=== PATIENT | female | born 1955 | race Caucasian/White ===

== ENCOUNTER 2019-10-19 16:30 | Outpatient (RCR) | payer BC, SELFPAY ==
--- NOTE | 2019-10-17 17:15 | PTOPEVAL ---
PHYSICAL THERAPY EVALUATION AND PLAN OF CARE 10-17-2019 Mrs. Wallace has received the PT evaluation and plan of treatment is scheduled for 2x/week for 4 weeks. Thank you for referring Simran to [facility]. Please review, sign, date and return this plan of care ROXANNA. I agree with and certify that the following plan of care is medically necessary. Referring Physician Date Attending Provider: Denny Barry MD *PT Outpatient Evaluation Start: 10/17/19 16:11 Document 10/17/19 16:05 ALLEN (Rec: 10/17/19 17:15 ALLEN [id number]) Outpatient Past Medical History Neurological History Hx Neurologic Surgery Yes: 12yrs old/sledding accident/clot removed/no residual Cardiovascular History Hx Cardiac Disorders No Significant History Respiratory History Hx Respiratory Disorders No Significant History Gastrointestinal History Hx Gastroesophageal Reflux Disease Yes Genitourinary History Hx Kidney Stones Yes Musculoskeletal History Hx Musculoskeletal Disorders No Significant History Hematological History Hx Hematological Disorders No Significant History Endocrine History Hx Endocrine Disorders No Significant History HEENT History Hx HEENT Disorders No Significant History Integumentary History Hx Skin Disorders No Significant History Reproductive History Hx Section Yes Hx Hysterectomy Yes Psychosocial History Hx Psychiatric Disorders No Significant History Pain History History of Any Previous or Ongoing No Significant History Instance of Pain Anesthesia History Hx Anesthesia Reactions No Significant History Evaluation Information Problem Diagnosis s/p R ankle ORIF due to trimalleolar fx Onset surgery 07-31-19 Subjective Information since surgery, used crutches; Query Text:As Reported By Patient/ have been doing ankle motions: Family toe scrunches, ankle up/down- per dr; foot and ankle swollen, had to get larger shoe; have light compression knee highs; after surgery, used immobilizer boot, it rubbed her incision and irritated it; not using any brace now; Previous Treatments Previous Treatments For This Problem no PT for ankle since surgery Prior Level of Function Activity Level (Last 3 Months) Occupation work in office Activity of Daily Living Ability Needs Some Help Stairs Ability Independent Cooking Yes Cleaning Yes L
--- NOTE | 2019-10-25 08:16 | PCPTNOTE ---
Patient called & cancelled all scheduled appointment this date due to COVID-19, keeping re-eval appointment on at this time.
--- NOTE | 2019-10-25 14:02 | PCPTNOTE ---
Pt called,talked with her on phone; she canceled appt due to coronavirus; reviewed HEP, she did not have any questions and is to continue them. Discussed increased walking without crutches, monitor swelling, pain; use ice and elevation PRN.
--- NOTE | 2019-11-03 15:36 | PCPTNOTE ---
pt called and saw yesterday, said Dr Barry was pleased with her ankle and the flexibility; discussed her HEP with her; she is to continue with sitting and standing exercises, with progression of walking and activity as tolerated; Her reevaluation is canceled due to coronavirus. The follow up appt with Dr Barry is in November. Pt is to call if any further questions. And after she sees , if need further PT to get new script.
--- NOTE | 2019-11-22 09:52 | PCPTNOTE ---
PHYSICAL THERAPY DISCHARGE 11-22-2019 Attending Provider: Denny Barry MD Patient:Simran Wallace Date of :1955 Mrs. Wallace has not returned for any further treatments since 10/19/2019, therefore she will be discharged at this time. She called on 10-25-19 and stated she had seen Dr. Barry and her ankle was doing well, and she did not want to continue PT due to COVID 19. Her home exercise program was reviewed on the phone, and she is to continue with it, progressing reps and increase her activity level as tolerated. The initial evaluation was on 10/17/2019 and she had 1 treatment session. The goals were not assessed. Thank you for referring Simran to [facility]. Please review, sign, date and return this discharge summary ROXANNA. I have been updated about the patient's current status and I agree with discharge from the above service at this time. Referring Physician Date
== END 2019-11-22 12:04 | disposition home or self-care (01) ==
LOC: ANHPT 16:30
PROVIDERS: Visit Provider Orthopaedic Surgery
DX: Z47.89 Encounter for other orthopedic aftercare (principal); S82.851D Displaced trimalleolar fracture of right lower leg, subsequent encounter for closed fracture with routine healing; Z87.81 Personal history of (healed) traumatic fracture
CPT/HCPCS: 29581; 97016; 97110; 97161

== ENCOUNTER → 2020-01-30 10:15 | Outpatient (CLI) | payer BC, SELFPAY ==
--- NOTE | ~2020-01-30 | MM_ITS ---
EXAMINATION: MM screening [facility] BI w [place] HISTORY: Screening mammogram TECHNIQUE: Craniocaudal and mediolateral oblique 3-D tomosynthesis images were obtained and synthetic 2-D images were generated. CAD analysis was submitted and interpreted. COMPARISON: 07/29/2011 BREAST PARENCHYMAL COMPOSITION: There are scattered areas of fibroglandular density. FINDINGS: There are radiolucent masses in the left breast which are partially obscured by fibroglandu lar tissue. There is a small mass in the mid outer aspect of the right breast, middle third. IMPRESSION: 1. Bilateral breast masses, not identified on prior study. 2. Additional mammographic views and possible breast ultrasound are recommended. BI-RADS Category 0: Incomplete: Needs additional imaging evaluation. Reviewed, dictated and finalized at location A. IMPRESSION: 1. Bilateral breast masses, not identified on prior study. 2. Additional mammographic views and possible breast ultrasound are recommended . BI-RADS Category 0: Incomplete: Needs additional imaging evaluation.
== END ==
PROVIDERS: Visit Provider Obstetrics & Gynecology
DX: Z12.31 Encounter for screening mammogram for malignant neoplasm of breast (principal); R92.8 Other abnormal and inconclusive findings on diagnostic imaging of breast
CPT/HCPCS: 77063; 77067

== ENCOUNTER → 2020-02-07 09:45 | Outpatient (CLI) | payer BC, SELFPAY ==
--- NOTE | ~2020-02-07 | MMUS_ITS ---
EXAMINATION: MM diagnostic mammo BI, US breast BI limited HISTORY: Bilateral breast masses on screening mammogram TECHNIQUE: Additional 3-D tomosynthesis images of the breasts were performed and synthetic 2-D images were generated. CAD analysis was submitted and interpreted. High resolution limited bilateral breast ultrasound was performed. COMPARISON: 01/30/2020, 07/29/2011, 01/21/2009 FINDINGS: MAMMOGRAPHIC FINDINGS: Left breast: There is a 7 mm oval, obscured, low density mass in the posterior third of the slightly inner breast 6.5 cm from the nipple at the 9:00 position. There is a 7 mm oval mass in the anterior t hird of the slightly inner breast at the 10:00 location 2.1 cm deep to the nipple which appears to co ntain central fat. No suspicious calcification or architectural distortion are identified. Right breast: There is a 5 mm round, circumscribed, equal density mass at the 9:00 location in the sl ightly outer breast 3.5 cm from the nipple. No suspicious calcification or architectural distortion a re identified. ULTRASOUND: Left breast: There is a 10 mm x 5 mm oval, circumscribed, parallel, hypoechoic mass with central echo genicity, posterior acoustic enhancement, and no internal vascularity at the 11:00 location 2.5 cm fr om the nipple with the appearance of an intramammary lymph node. There is a 6 mm cyst at the 10:00 lo cation 2.5 cm from the nipple. Left breast: There is a 5 mm round, hypoechoic mass with possible angular margin, subtle posterior ac oustic shadowing and no internal vascularity at the 9:00 location 3.5 cm from the nipple. IMPRESSION: 1. Suspicious right breast mass. Ultrasound-guided right breast biopsy is recommended. 2. Benign-appearing left breast masses, recommend routine screening on the left. BI-RADS category 4, suspicious findings. Reviewed, dictated and finalized at location A. IMPRESSION: 1. Suspicious right breast mass. Ultrasound-guided right breast biopsy is recom mended. 2. Benign-appearing left breast masses, recommend routine screening on the left . BI-RADS category 4, suspicious findings.
== END ==
PROVIDERS: Visit Provider Obstetrics & Gynecology
DX: R92.8 Other abnormal and inconclusive findings on diagnostic imaging of breast (principal)
CPT/HCPCS: 76642; 77066

== ENCOUNTER 2024-06-12 00:54 | Day surgery (SDC) | payer BC, SELFPAY ==
[2024-05-31 15:14] VITALS: BMI 33.6
[2024-06-12 08:49] VITALS: BP 156/92; PULSE 90; RESP 16; TEMP 36.1; O2SAT 97; BMI 33.2
[2024-06-12] MEDS: LACTATED RINGERS 1,000 ML 150 ML IV CONT (08:57)
--- NOTE | 2024-06-12 09:36 | PM.IMHP ---
H&P: HPI History of Present Illness Date/Time: 06/12/24 09:36 Chief Complaint: Screening colonoscopy Narrative: This is the patient's first colonoscopy. There are no GI symptoms and there is no family history of colorectal cancer. Review of Systems Review of Systems: All systems reviewed & are unremarkable except as noted in HPI and below [facility] Past Medical History Medical History (Updated 03/20/24 @ 08:51 by Victor Manuel Bose MD) Anemia Angina pectoris Elevated blood pressure reading in office without diagnosis of hypertension Elevated blood sugar GERD (gastroesophageal reflux disease) History of blood clots due to sledding accident at 12 years old, no residual Kidney stones Mixed hyperlipidemia Obesity Obesity (BMI 30.0-34.9) Surgical History Surgical History History of ankle surgery orif right ankle July 2019 History of partial hysterectomy Hx of section x2 Status post evacuation of subdural hematoma at a young age Family History Family History Father Acute myocardial infarction Mother CHF (congestive heart failure) Social History Social History Smoking status: Never smoker Alcohol intake: current Drinks per week: 1 Alcohol use details: Occasional Living arrangements: with family Gender identity (if verbalized by the patient): Female Spiritual care concerns: No Meds Home Medications and Allergies Home Medications Medication Instructions Recorded Confirmed Type lisinopril 10 mg tablet 10 mg PO DAILY #90 tabs 02/15/24 06/12/24 Rx Allergies Allergy/AdvReac Type Severity Reaction Status Date / Time cefadroxil AdvReac Mild Swelling Verified 06/12/24 08:47 of Lip/Tongue/Throat Vital Signs Vital Signs - 24 hr 06/12/24 08:49 Temperature 97.0 F L Pulse Rate 90 Respiratory Rate 16 Blood Pressure 156/92 H Pulse Oximetry 97 Oxygen Delivery Room Air Exam Const: General: cooperative and healthy appearing Resp: Effort & Inspection: normal respiratory effort and able to speak in complete sentences Auscultation: clear to auscultation bilaterally Cardio: Rate: regular rate Rhythm: regular rhythm GI: Inspection: normal to inspection GI Palp: No No hepatosplenomegaly present Auscultation: normal bowel sounds Rectal Exam: deferred Skin: General skin exam: normal color Psych: Appearance: grossly normal Mental Status: mental status grossly normal Assessment and Plan Assessment and plan (1) Colon cancer screening: Code(s): Z12.11 - Encounter for screening for malignant neoplasm of colon Status: Acute Plan The patient is deemed a good candidate for the procedure. Consent signed. Will proceed.
--- NOTE | 2024-06-12 09:41 | P.PNAN_ITS ---
Anes - Initial Pre Proc Eval Procedure: Operation Date: 06/12/24 10:00 Proposed Procedures p Screening Colonoscopy - Kendall Henriquez MD Date/Time: 06/12/24 09:41 Surgeon: Kendall Henriquez MD Pre Op Diagnosis: neoplasm screening Pre Op Diagnosis: neoplasm screening Patient Data Age: 68 Gender: F Height: 1.7 m Weight: 96.3 kg Last Vital Signs Temp 36.1 C L 06/12/24 08:49 Pulse 90 06/12/24 08:49 Resp 16 06/12/24 08:49 BP 156/92 H 06/12/24 08:49 Pulse Ox 97 06/12/24 08:49 O2 Del Method Room Air 06/12/24 08:49 Allergies Allergy/AdvReac Type Severity Reaction Status Date / Time cefadroxil AdvReac Mild Swelling Verified 06/12/24 08:47 of Lip/Tongue/Throat Home Medications Medication Instructions Recorded Confirmed Type lisinopril 10 mg tablet 10 mg PO DAILY #90 tabs 02/15/24 06/12/24 Rx Patient hx anesthesia problems: none Family hx anesthesia problems: none Results Review: All pre-operative results and documents have been reviewed as part of the pre- operative evaluation. [facility] Past Medical History Medical History Anemia Angina pectoris Elevated blood pressure reading in office without diagnosis of hypertension Elevated blood sugar GERD (gastroesophageal reflux disease) History of blood clots due to sledding accident at 12 years old, no residual Kidney stones Mixed hyperlipidemia Obesity Obesity (BMI 30.0-34.9) Surgical History Surgical History History of ankle surgery orif right ankle July 2019 History of partial hysterectomy Hx of section x2 Status post evacuation of subdural hematoma at a young age Family History Family History Father Acute myocardial infarction Mother CHF (congestive heart failure) Social History Social History Smoking status: Never smoker Alcohol intake: current Drinks per week: 1 Alcohol use details: Occasional Living arrangements: with family Gender identity (if verbalized by the patient): Female Spiritual care concerns: No Anes - Eval Final PreProcedure Day of Procedure 06/12/24 09:41 Patient weight: obese Heart: regular rate and rhythm Lungs: clear to auscultation Airway: Mallampati scale class II Neurological: alert and oriented Last oral intake: >/= 8 hours ASA classification: II Emergent: no Anesthetic plan: proceed Anesthesia type and monitoring: general GIVS and standard monitoring Results Review: All pre-operative results and documents have been reviewed as part of the pre- operative evaluation. Informed Consent: The patient's anesthetic plan and its attendant risks and benefits were discussed with the patient/family/POA. Questions were solicited and answers provided to the satisfaction of the patient/family/POA.
[2024-06-12 10:06] VITALS: BP 132/84; PULSE 80; RESP 17; O2SAT 97
[2024-06-12 10:16] VITALS: BP 150/88; PULSE 84; RESP 23; O2SAT 100
[2024-06-12 10:26] VITALS: BP 155/95; PULSE 77; RESP 23; O2SAT 100
== END 2024-06-12 10:40 | disposition home or self-care (01) ==
PROVIDERS: PCP Family Medicine; Visit Provider Internal Medicine Gastroenterology
PROC: 0DJD8ZZ Inspection of Lower Intestinal Tract, Via Natural or Artificial Opening Endoscopic (ICD-10-PCS; CPT 45378; principal; 2024-06-12 10:00)
DX: Z12.11 Encounter for screening for malignant neoplasm of colon (principal); E66.9 Obesity, unspecified; Z68.33 Body mass index [BMI] 33.0-33.9, adult
CPT/HCPCS: 45378; J2003; J2704; J7120

== ENCOUNTER 2024-09-08 07:45 | Outpatient (CLI) | payer BC, SELFPAY ==
--- NOTE | ~2024-09-08 | MMUS_ITS ---
EXAMINATION: MM diagnostic price RT w [place], US breast RT limited HISTORY: Possible right breast mass TECHNIQUE: Additional 3-D tomosynthesis images of the right breast were performed and synthetic 2-D i mages were generated. CAD analysis was submitted and interpreted. High resolution limited right breas t ultrasound was performed. COMPARISON: 08/25/2024 BREAST PARENCHYMAL COMPOSITION:Not Dense. There are scattered areas of fibroglandular density. FINDINGS: MAMMOGRAPHIC FINDINGS: Possible persistent very low-density circumscribed mass measuring 8 mm at the upper, outer posterior right breast. ULTRASOUND: At the 9:00 position right breast, 7 cm from the nipple, there is a 4 mm hypoechoic circumscribed mas s, without posterior shadowing. At the 9:00 position right breast, 6 cm nipple, there is an additiona l 5 mm circumscribed parallel hypoechoic mass, without posterior shadowing. At the 10:00 position rig ht breast, there is a possible 2 mm hypoechoic mass. Benign lymph node noted at the 11:00 position ri ght breast, 11 cm from the nipple. IMPRESSION: Probable benign subcentimeter masses at the 9:00 position right breast, as detailed above. Six-month follow-up ultrasound recommended to reassess. No distinct evidence for malignancy. BI-RADS category 3, probably benign findings. Reviewed, dictated and finalized at location M. [employer] IMPRESSION: Probable benign subcentimeter masses at the 9:00 position right breast, as deta iled above. Six-month follow-up ultrasound recommended to reassess. No distinct evidence for malignancy. BI-RADS category 3, probably benign findings.
== END 2024-09-08 07:46 | disposition home or self-care (01) ==
PROVIDERS: PCP Family Medicine; Visit Provider Obstetrics & Gynecology
DX: N63.11 Unspecified lump in the right breast, upper outer quadrant (principal)
CPT/HCPCS: 76642; 77061; 77065; G0279

== ENCOUNTER 2025-03-05 08:01 | Outpatient (CLI) | payer BC, SELFPAY ==
--- NOTE | ~2025-03-05 | US_ITS ---
EXAMINATION: US breast RT limited INDICATION: 69-year old female; BI-RADS 3, short-term follow-up right breast masses. COMPARISON: 09/08/2024 and 02/07/2020 TECHNIQUE: Targeted sonographic evaluation of the probably benign masses in the outer right breast was completed . FINDINGS: A 0.4 cm anechoic mass at 9:00 location 7 cm from the nipple in the RIGHT breast reidentified is unch anged. A 0.8 cm anechoic mass at 9:00 location 6 cm from the nipple in the RIGHT breast reidentified has not significantly changed. IMPRESSION: Probably benign right breast masses have not significantly changed. RECOMMENDATION: Continue imaging surveillance with bilateral diagnostic mammography and right breast ultrasound in 6 months. BI-RADS 3, PROBABLY BENIGN Reviewed, dictated and finalized at location [] IMPRESSION: Probably benign right breast masses have not significantly changed. RECOMMENDATION: Continue imaging surveillance with bilateral diagnostic mammography and right b reast ultrasound in 6 months. BI-RADS 3, PROBABLY BENIGN
== END 2025-03-05 08:02 | disposition home or self-care (01) ==
LOC: MICIMG 08:03
PROVIDERS: PCP Family Medicine; Visit Provider Obstetrics & Gynecology
DX: N63.11 Unspecified lump in the right breast, upper outer quadrant (principal)
CPT/HCPCS: 76642